=== PATIENT | male | born 1940 | race Two or more races ===

== ENCOUNTER 2019-12-31 13:29 | Inpatient (IN) | payer MEDICARE, OTHER ==
[~2019-12-31] VITALS: Ht 172.7 cm; Wt 93.4 kg
--- NOTE | 2019-12-31 13:40 | NUR ---
BIBELKE FROM [facility] C/O UNABLE TO SLEEP, HEARING VOICES, -SI. PATIENT A/OX4, BREATHING EVEN AND UNLABORED, NO SOB NOTED, AMBULATORY WITH STEADY GAIT. NO DISTRESS NOTED. CALM AND COOPERATIVE AT THIS TIME.
[2019-12-31] MEDS ORDERED: PHEN100C4 PO (13:47)
[2019-12-31] MEDS ORDERED: CALC-7 PO (13:47)
[2019-12-31] MEDS ORDERED: MULT-447 PO (13:47)
[2019-12-31] MEDS ORDERED: DIVA500T2 PO (13:47)
[2019-12-31] MEDS ORDERED: OLAN15TA3 PO (13:47)
[2019-12-31] MEDS ORDERED: PALI3TAB PO (13:47)
[2019-12-31] MEDS ORDERED: AMLO10TA4 PO (13:47)
[2019-12-31] MEDS ORDERED: TEMA30CA5 PO (13:47)
[2019-12-31] MEDS ORDERED: TAMS-12 PO (13:47)
[2019-12-31] MEDS ORDERED: VALB40CA PO (13:47)
[2019-12-31] MEDS ORDERED: ATOR40TA PO (13:47)
[2019-12-31 13:59] LABS: APPEARANCE,URINE Clear (CLEAR); BILIRUBIN,URINE Negative (NEGATIVE); BLOOD, URINE Moderate Ery/uL (NEGATIVE); COLOR,URINE Yellow (YELLOW); KETONES,URINE Negative (NEGATIVE); LEUKOCYTE ESTERASE ,URINE Large (NEGATIVE); NITRITE, URINE Positive (NEGATIVE); PH,URINE 6.5 (5.0-8.0); PROTEIN,URINE 30 mg/dl (NEGATIVE); UGLUCOSE Negative (NEGATIVE); UROBILINOGEN,URINE 0.2 EU/dL (0.2)
[2019-12-31 14:09] LABS: BACTERIA,URINE 1+ /HPF (None Seen); HYALINE CASTS, URINE Few /LPF (None Seen); SQUAMOUS EPITHELIAL CELL,UR Rare /HPF (None Seen); WBC,URINE 21-50 /HPF (0-3)
[2019-12-31 14:11] LABS: BASOPHILS % (AUTO) 0.6 % (0.0-2.0); EOSINOPHILS % (AUTO) 1.5 % (0.0-6.0); HEMATOCRIT 42 % (39-51); HEMOGLOBIN 14.3 g/dL (13.5-17.5); LYMPHOCYTES # (AUTO) 2.8 /CMM (0.8-4.8); LYMPHOCYTES % (AUTO) 33.9 % (20.0-44.0); MEAN CORPUSCULAR HGB CONC 34 g/dl (31.0-36.0); MEAN CORPUSCULAR VOLUME 94 fL (80-96); MONOCYTES # (AUTO) 0.7 /CMM (0.1-1.30); MONOCYTES % (AUTO) 8.4 % (2.0-12.0); NEUTROPHILS # (AUTO) 4.6 /CMM (1.8-8.9); NEUTROPHILS % (AUTO) 55.6 % (43.0-81.0); PLATELET COUNT (AUTO) 200 /CMM (150-450); RED BLOOD CELL COUNT(AUTO) 4.49 MIL/uL (4.5-6.0); WHITE BLOOD COUNT (AUTO) 8.3 K/uL (4.3-11.0)
[2019-12-31 14:22] LABS: CALCIUM, SERUM 8.8 mg/dL (8.5-10.1); CARBON DIOXIDE 28 mmol/L (21-32); CHLORIDE 106 mmol/L (98-107); CREATININE 1.1 mg/dL (0.6-1.3); GLUCOSE 127 mg/dL (74-106); POTASSIUM 3.8 mmol/L (3.5-5.1); SODIUM SERUM 142 mmol/L (136-145); UREA NITROGEN, BLOOD 21 mg/dL (7-18)
[2019-12-31 14:26] LABS: ALANINE AMINOTRANSFERASE 45 U/L (12-78); ALBUMIN 3.6 g/dL (3.4-5.0); ALCOHOL, BLOOD < 3 mg/dL (0-0); ALKALINE PHOSPHATASE 95 U/L (46-116); ASPARTATE AMINOTRANSFERASE 28 U/L (15-37); BILIRUBIN,DIRECT 0.1 mg/dL (0.0-0.2); BILIRUBIN,TOTAL 0.2 mg/dL (0.2-1.0); TOTAL PROTEIN, SERUM 7.4 g/dL (6.4-8.2)
[2019-12-31 14:27] LABS: ACETAMINOPHEN 0 ug/ml (10-30); SALICYLATE 2.5 mg/dL (2.8-20.0)
[2019-12-31] MEDS ORDERED: CEFTRIAXONE 1 G in IV D5W 50 ML IV STA (15:23)
--- NOTE | 2019-12-31 15:27 | NUR ---
CALLED CLINICIAN [facility] FOR EVAL. NO ETA GIVEN, BUT HE HIS ON HIS WAY.
[2019-12-31] MEDS ORDERED: CEPHALEXIN MONOHYDRATE 500 MG CAPSULE PO ONE (15:30)
[2019-12-31] MEDS ORDERED: ACETAMINOPHEN ES 500 MG TABLET ONE (16:12)
--- NOTE | 2019-12-31 16:20 | NUR ---
GOT GPS BED 216-A
[2019-12-31] MEDS ORDERED: ACETAMINOPHEN ES 500 MG TABLET PO ONE (16:30)
--- NOTE | 2019-12-31 16:33 | NUR ---
REPORT GIVEN TO NEHEMIAS POLK FOR ANETA.
--- NOTE | 2019-12-31 17:32 | NUR ---
PATIENT TRANSFERRED TO [facility], AMBULATORY WITH STEADY GAIT. NO DISTRESS NOTED.
[2019-12-31] MEDS ORDERED: MAG HYDROX/AL HYDROX/SIMETH 30 ML UDC PO PRN (18:00)
[2019-12-31] MEDS ORDERED: MAGNESIUM HYDROXIDE 30 ML UDC PO PRN (18:00)
--- NOTE | 2019-12-31 18:26 | NUR ---
GPS/RN-NOTES ADMITTED PATIENT 79 Y.O MALE PATIENT FROM [facility] ER.PATIENT ON 5150 FOR GD ADULT. PATIENT ALERT ORIENTED TO NAME ONLY AMBULATORY STEADY GAIT. CONTRABAND DONE. PATIENT SIGN ALL ADMISSION PAPERS. CALLED SISTER GERTRUDE WARD AT [phone] AND LEFT VOICE MESSAGE.DR. GASTON MADE AWARE WITH ORDERS. WILL ENDORSE TO INCOMING NURSE FOR ADMISSION PROCESS AND CONTINUITY OF CARE.
--- NOTE | 2019-12-31 19:15 | NUR ---
GPS ADMISSION NOTES: ADMITTED THIS 79-Y/O, MALE, FROM [facility]. ADMITTED ON 5150 HOLD FOR GD. PER HOLD PT. IS CONFUSED, DISORGANIZED, PARANOIA, AND DELUSIONAL. PT UNABLE TO PROVIDE FOR HIS FOOD AND GROUP HOME D/T MENTAL ILLNESS. UPON FACE TO FACE ASSESSMENT, PATIENT IS A&O X1-2, CONFUSED, DISORGANIZED, DISHEVELED, COOPERATIVE WITH CARE. REORIENTATION PROVIDED. AMBULATES INDEPENDENTLY. IN NO APPARENT DISTRESS NOTED. SKIN ASSESSMENT DONE. SKIN INTACT. PT'S RIGHTS HANDBOOK & PT. GUIDELINES BOOK GIVEN & DISCUSSED TO THE PATIENT. PT BELONGINGS WERE INVENTORIED & CHECKED FOR CONTRABAND. PT. IS UNDER THE PSYCHIATRIC CARE OF DR. GASTON, ORDERS OBTAINED & UNDER THE MEDICAL CARE OF DR. LAMBERT. MED RECON DONE. PATIENT EDUCATED TO THE USE OF CALL CISNEROS. BED ALARM ON. ENVIRONMENTAL SAFETY CHECK DONE. BED LOCKED & IN LOW POSITION. WILL CONTINUE TO MONITOR Q15 MINUTES FOR SAFETY & BEHAVIOR.
[2019-12-31 19:30] VITALS: BP 154/83
[2019-12-31] MEDS ORDERED: BLOOD SUGAR DIAGNOSTIC 1 EACH STRIP IN ONE (19:45)
[2019-12-31 20:00] VITALS: BP 154/93
[2019-12-31] MEDS: PHENYTOIN EXTENDED RELEASE 100 MG CAPSULE PO SCH (21:33)
[2019-12-31] MEDS: ZOLPIDEM TARTRATE 5 MG TABLET PO PRN (21:34)
--- NOTE | 2019-12-31 21:34 | NUR ---
GPS RN NOTE: INSOMNIA PT. C/O UNABLE TO SLEEP. ADMINISTERED AMBIEN 5 MG PO ORDERED. WILL CONTINUE TO MONITOR FOR PT'S SAFETY.
[2020-01-01] MEDS: LORAZEPAM 0.5 MG TABLET PO PRN (02:19)
--- NOTE | 2020-01-01 02:19 | NUR ---
GPS-RN NOTE: ANXIETY PATIENT IS ANXIOUS AND RESTLESS. ADMINISTERED ATIVAN 1MG PO ORDERED. WILL CONTINUE TO MONITOR FOR PATIENT'S SAFETY.
--- NOTE | 2020-01-01 06:15 | NUR ---
GPS RN NOTE: SCROTUM SCRATCH MANJEET CALLED TO MY ATTENTION BY READING INSTRUCTOR TO CHECK ON PATIENT. IMMEDIATELY WENT TO PATIENT'S ROOM AND ASSESSED. FOUND BLOOD STAINS ON THE FLOOR BY HIS BED AND SCROTUM AREA. WHEN ASKED PATIENT WHAT HAPPENED, PATIENT UNABLE TO GIVE DETAILS. PER ROOMMATE, PATIENT WAS MASTURBATING IN THE BATHROOM AND SUSTAINED A SCRATCH MANJEET WITH SCANT AMOUNT OF BLOOD. INITIAL TX RENDERED. PATIENT DENIES PAIN AND DISCOMFORT. EXPLAINED TO PATIENT THAT RN NEEDS TO TAKE A PICTURE OF THE AFFECTED AREA. PATIENT BECAME SEXUALLY INAPPROPRIATE AND STATED, "IS THIS PORNOGRAPHY? ARE YOU HORNY?" REDIRECTED PATIENT'S BEHAVIOR. NO ACTIVE BLEEDING AT THIS TIME. WOUND CONSULT ORDERED. DISCOURAGED PATIENT NOT TO SCRATCH SCROTUM. PATIENT IS CONFUSED AND UNABLE TO VERBALIZE UNDERSTANDING. WILL CONT. TO MONITOR FOR S/S OF INFECTION. WILL ENDORSE TO DAY SHIFT FOR CONTINUITY OF CARE.
[2020-01-01 08:00] VITALS: BP 145/85
[2020-01-01] MEDS: CALCIUM CARB 250MG /VITAMIN D 1 UDTAB PO SCH (08:28)
[2020-01-01] MEDS: TAMSULOSIN 0.4 MG CAP.SR.24H PO SCH (08:28)
[2020-01-01] MEDS: ATORVASTATIN 40 MG TABLET PO SCH (08:28)
[2020-01-01] MEDS: DIVALPROEX SODIUM 500 MG TABLET.DR PO SCH ×2 (08:28→21:14)
[2020-01-01] MEDS: AMLODIPINE BESYLATE 10 MG TABLET PO SCH (08:29)
[2020-01-01 09:07] LABS: ALBUMIN 3.3 g/dL (3.4-5.0); BILIRUBIN,TOTAL 0.3 mg/dL (0.2-1.0); CALCIUM, SERUM 8.7 mg/dL (8.5-10.1); CREATININE 1.1 mg/dL (0.6-1.3); POTASSIUM 4.4 mmol/L (3.5-5.1); TOTAL PROTEIN, SERUM 7.2 g/dL (6.4-8.2)
[2020-01-01] MEDS: LEVETIRACETAM (250 MG) 250 MG TABLET PO SCH ×2 (09:18→21:14)
--- NOTE | 2020-01-01 09:38 | NUR ---
WOUND CARE CONSULT: PT PRESENTS WITH LEFT GROIN AREA RASH, PRESENT ON ADMISSION. PT IS AMBULATORY AND CONTINENT. RECOMMENDATIONS MADE FOR SKIN CARE AND SKIN PROTECTION. DISCUSSED WITH NURSING STAFF. WILL SEE PRN. GUERRIER IN AGREEMENT WITH PLAN OF CARE. Addendum: 01/01/20 at 0939 by PERRY CHANG WNDNU Amended: Links added.
--- NOTE | 2020-01-01 09:43 | NUR ---
RN NOTES PT SEEN AND EVALUATED BY DR LAMBERT. INFORMED HIM REGARDING PT HIGH URINE WBC 20-50.
--- NOTE | 2020-01-01 09:58 | NUR ---
Dr. Cervantes as the medical reception of the unit gave an order for denial of right to do room search to look for the missing shower head with the hose. Staffs made a thorough search and the thing that we are looking is not in the room.
--- NOTE | 2020-01-01 10:41 | NUR ---
Family Contact: SW called the pts sister, Alison ([phone]), and left a voicemail stating that the SW would like to talk to her and discuss the pts initial treatment and discharge plan.
[2020-01-01 10:54] LABS: FREE PSA 0.92 ng/mL (0.00-45); PROSTATE SPECIFIC ANTIGEN SCR 6.04 ng/mL (0.00-4.00)
[2020-01-01] MEDS: CLOTRIMAZOLE 1% 15 GM TUBE TP SCH ×2 (11:15→16:09)
--- NOTE | 2020-01-01 14:29 | NUR ---
RN NOTES DOVETAILER CAME TO DO U/S KIDNEYS AND PT REFUSED DESPITE EDUCATING ON THE IMPORTANCE OF SAID PROCEDURE.
--- NOTE | 2020-01-01 15:20 | NUR ---
Facility Contact: ROBBY called [facility] ([phone]) and spoke to Sandy who stated that the pt can return to the facility upon discharge.
--- NOTE | 2020-01-01 15:54 | NUR ---
Initial Discharge Plan: Pt currently resides in a intermediate home called [facility] located at [address] [place] [address]; ([phone]). Per pt, he would like to return. ROBBY will work with the pt and the MD regarding appropriate discharge planning. SW will form a safe and proper discharge.
[2020-01-01 16:01] VITALS: BP 130/76
[2020-01-01] MEDS: risperiDONE 1 MG TABLET PO SCH (16:11)
[2020-01-01 20:30] VITALS: BP 130/77
[2020-01-01] MEDS: PHENYTOIN EXTENDED RELEASE 100 MG CAPSULE PO SCH (21:14)
[2020-01-01] MEDS: OLANZAPINE 10 MG TABLET PO SCH (21:15)
[2020-01-02 08:00] VITALS: BP 123/55
[2020-01-02] MEDS: AMLODIPINE BESYLATE 10 MG TABLET PO SCH (09:55)
[2020-01-02] MEDS: TAMSULOSIN 0.4 MG CAP.SR.24H PO SCH (09:55)
[2020-01-02] MEDS: LEVETIRACETAM (250 MG) 250 MG TABLET PO SCH ×2 (09:55→20:11)
[2020-01-02] MEDS: ATORVASTATIN 40 MG TABLET PO SCH (09:55)
[2020-01-02] MEDS: risperiDONE 1 MG TABLET PO SCH ×2 (09:56→17:25)
[2020-01-02] MEDS: CALCIUM CARB 250MG /VITAMIN D 1 UDTAB PO SCH (09:56)
[2020-01-02] MEDS: DIVALPROEX SODIUM 500 MG TABLET.DR PO SCH ×2 (09:56→20:10)
[2020-01-02] MEDS: CLOTRIMAZOLE 1% 15 GM TUBE TP SCH ×2 (10:11→17:21)
[2020-01-02 16:00] VITALS: BP 127/80
--- NOTE | 2020-01-02 18:07 | NUR ---
RN-CO: RN toll collector supervisor made aware that patient has mild MRSA of the nares and needed to be isolated. No available room as this time in GPS, since 217 (isolation room) has a patient that needs be isolated too.
--- NOTE | 2020-01-02 18:32 | NUR ---
CALL FROM [facility] THAT PT. HAS MRSA NARES.PATIENT SERVICE REP INFORMED.ORDER WRITTEN FOR BACTROBAN
[2020-01-02] MEDS: MUPIROCIN OINT 2% 22 GM TUBE SCH ×2 (19:46→20:11)
[2020-01-02 20:00] VITALS: BP 153/93
--- NOTE | 2020-01-02 20:00 | NUR ---
GPS/RN OPENING NOTES RECEIVED PATIENT AWAKE, AND ABLE TO AMBULATE IN HALLWAY WITH WALKER, REQUIRE ASSISTANCE AND EDUCATION FOR CONTACT ISOLATION FOR MRSA, ABLE TO COOPERATE AND TOLERATE MEDICATION VIA NARES. RECEIVED ENDORSEMENT FROM AM RN FOR ANETA. CHARGE NURSE AWARE FOR ISOLATION PROTOCOL, AWAITING FOR ROOM. REQUIRE MONITORING FOR BEHAVIOR.
[2020-01-02 20:56] VITALS: BP 132/71
[2020-01-02] MEDS: PHENYTOIN EXTENDED RELEASE 100 MG CAPSULE PO SCH (21:39)
[2020-01-02] MEDS: OLANZAPINE 10 MG TABLET PO SCH (21:39)
--- NOTE | 2020-01-02 22:03 | NUR ---
GPS/RN NOTES PATIENT MONITORED IN HALLWAY PATIENT IS AMBULATING WITH WALKER, DISCUSSED SAFETY MEASURED WITH RADIO DIVISION LIEUTENANT AND TO MONITOR.
--- NOTE | 2020-01-03 02:31 | NUR ---
GPS/RN NOTES TO FOLLOW UP URINE CULTURE FINAL RESULT WITH DR LAMBERT GRAB SETTER MD AT 5AM FOR ORDER.
[2020-01-03] MEDS ORDERED: ACETAMINOPHEN 325 MG TABLET ONE (02:58)
[2020-01-03] MEDS: ACETAMINOPHEN 325 MG TABLET PO PRN (03:00)
--- NOTE | 2020-01-03 03:06 | NUR ---
GPS/RN NOTES PATIENT REPORTED SOME MILD PELON IN LOWER BACK, TYLENOL 650 MG PO NEEDED GIVEN. MONITOR FOR RELIEF.
[2020-01-03] MEDS: LORAZEPAM 0.5 MG TABLET PO PRN (03:17)
--- NOTE | 2020-01-03 03:21 | NUR ---
GPS/RN NOTES PATIENT UNABLE TO CALM DOWN, REQUESTED FOR SOME ATIVAN PRN ORDER OF 1MG TABLET. TO MONITOR EFFECTIVENESS.
--- NOTE | 2020-01-03 05:13 | NUR ---
GPS/RN NOTES MD LAMBERT WAS CONTACTED REGARDING FINAL RESULT OF URINE CULTURE AND MADE AWARE WITH NO NEW ORDER PATIENT IS ASYMPTOMATIC.
[2020-01-03 08:00] VITALS: BP 124/60
[2020-01-03] MEDS: TAMSULOSIN 0.4 MG CAP.SR.24H PO SCH (09:27)
[2020-01-03] MEDS: LEVETIRACETAM (250 MG) 250 MG TABLET PO SCH ×2 (09:27→21:46)
[2020-01-03] MEDS: AMLODIPINE BESYLATE 10 MG TABLET PO SCH (09:27)
[2020-01-03] MEDS: ATORVASTATIN 40 MG TABLET PO SCH (09:27)
[2020-01-03] MEDS: DIVALPROEX SODIUM 500 MG TABLET.DR PO SCH ×2 (09:27→21:46)
[2020-01-03] MEDS: risperiDONE 1 MG TABLET PO SCH ×2 (09:27→17:44)
[2020-01-03] MEDS: CALCIUM CARB 250MG /VITAMIN D 1 UDTAB PO SCH (09:27)
[2020-01-03] MEDS: MUPIROCIN OINT 2% 22 GM TUBE SCH (09:28)
[2020-01-03] MEDS: CLOTRIMAZOLE 1% 15 GM TUBE TP SCH ×2 (09:28→17:45)
--- NOTE | 2020-01-03 15:31 | NUR ---
RN NOTES SEEN PATIENT BY HOSPITALIST Dr LAMBERT INCREASE FLUID INTAKE, NO ORDER FOR UA-WBC 21-50, DS-[id number], D/C ANTIBIOTIC PER MD BACTROBAN. PER MD BACTERIA COLONIZED PATIENT DOES NOT NEED TREATMENT.
--- NOTE | 2020-01-03 20:35 | NUR ---
MS RN NOTES RECEIVED PATIENT ASLEEP IN BED WITH NO DISTRESS NOTED. SITTER AT BEDSIDE. NO C/O PAIN OR DISCOMFORT. ENCOURAGED USE OF CALL LIGHT FOR ASSISTANCE AND VERBALIZED GOOD UNDERSTANDING. ROOM FREE OF CLUTTER AND BELONGINGS KEPT NEAR BEDSIDE. BED IN LOW LOCK SETTING WITH BED ALARM ON AND FUNCTIONING PROPERLY. WILL CONTINUE TO MONITOR
[2020-01-03] MEDS: OLANZAPINE 10 MG TABLET PO SCH (21:46)
--- NOTE | 2020-01-04 06:26 | NUR ---
MS RN NOTES PATIENT AWAKE IN BED WITH NO DISTRESS NOTED. CALL LIGHT WITHIN REACH. ALL DUE MEDS GIVEN ORDERED WITH NO ASE. NO C/O PAIN OR DISCOMFORT. NO BEHAVIORAL EPISODES NOTED DURING SHIFT. BED IN LOW LOCK SETTING. ALL BELONGINGS KEPT NEAR BEDSIDE. WILL ENDORSE TO ONCOMING SHIFT. Addendum: 01/04/20 at 0628 by NANCY GRAY RN ERROR WRONG PATIENT
--- NOTE | 2020-01-04 06:29 | NUR ---
MS RN NOTES RECEIVED PATIENT ASLEEP IN BED WITH NO DISTRESS NOTED. SITTER AT BEDSIDE. NO C/O PAIN OR DISCOMFORT. ALL DUE MEDS GIVEN ORDERED WITH NO ASE. ROOM FREE OF CLUTTER AND BELONGINGS KEPT NEAR BEDSIDE. BED IN LOW LOCK SETTING WITH BED ALARM ON AND FUNCTIONING PROPERLY. WILL ENDORSE TO ONCOMING SHIFT.
[2020-01-04] MEDS: LEVETIRACETAM (250 MG) 250 MG TABLET PO SCH ×2 (10:52→21:23)
[2020-01-04] MEDS: TAMSULOSIN 0.4 MG CAP.SR.24H PO SCH (10:53)
[2020-01-04] MEDS: CALCIUM CARB 250MG /VITAMIN D 1 UDTAB PO SCH (10:53)
[2020-01-04] MEDS: AMLODIPINE BESYLATE 10 MG TABLET PO SCH (10:54)
[2020-01-04] MEDS: DIVALPROEX SODIUM 500 MG TABLET.DR PO SCH ×2 (10:54→21:22)
[2020-01-04] MEDS: risperiDONE 1 MG TABLET PO SCH ×2 (10:54→18:01)
[2020-01-04] MEDS: ATORVASTATIN 40 MG TABLET PO SCH (10:54)
[2020-01-04] MEDS: CLOTRIMAZOLE 1% 15 GM TUBE TP SCH ×2 (10:55→18:02)
--- NOTE | 2020-01-04 18:50 | NUR ---
RN Notes Patient transferred back tor GPS. Patient stable, no acute respiratory distress, v/s stable, ambulatory using walker. Administered scheduled medication, tolerated dinner well. report given GPS RN. RN verbalized understanding, and will follow up.
[2020-01-04 21:03] VITALS: BP 134/78
[2020-01-04] MEDS: OLANZAPINE 10 MG TABLET PO SCH (21:22)
[2020-01-05] MEDS: ZOLPIDEM TARTRATE 5 MG TABLET PO PRN (00:09)
--- NOTE | 2020-01-05 00:10 | NUR ---
GPS RN NOTES: INSOMNIA UPON DOING ROUNDS PT IS SITTING IN HIS BED AWAKE. PT STATED, " I CANT SLEEP. CAN I HAVE MEDICATION PLEASE?" OFFERED AMBIEN 5MG PO PRN ORDERED. PT AGREED AND TOLERATED MEDICATION WELL. CONTINUE TO MONITOR
[2020-01-05 08:00] VITALS: BP 116/75
[2020-01-05] MEDS: DIVALPROEX SODIUM 500 MG TABLET.DR PO SCH ×2 (08:35→20:19)
[2020-01-05] MEDS: AMLODIPINE BESYLATE 10 MG TABLET PO SCH (08:35)
[2020-01-05] MEDS: CALCIUM CARB 250MG /VITAMIN D 1 UDTAB PO SCH (08:35)
[2020-01-05] MEDS: ATORVASTATIN 40 MG TABLET PO SCH (08:36)
[2020-01-05] MEDS: LEVETIRACETAM (250 MG) 250 MG TABLET PO SCH ×2 (08:36→20:19)
[2020-01-05] MEDS: risperiDONE 1 MG TABLET PO SCH ×2 (08:36→16:36)
[2020-01-05] MEDS: TAMSULOSIN 0.4 MG CAP.SR.24H PO SCH (08:36)
[2020-01-05] MEDS: CLOTRIMAZOLE 1% 15 GM TUBE TP SCH ×2 (09:35→17:25)
[2020-01-05 16:00] VITALS: BP 119/75
[2020-01-05 21:30] VITALS: BP 111/93
[2020-01-05] MEDS: OLANZAPINE 10 MG TABLET PO SCH (21:31)
[2020-01-06 08:00] VITALS: BP 126/80
[2020-01-06] MEDS: CALCIUM CARB 250MG /VITAMIN D 1 UDTAB PO SCH (08:30)
[2020-01-06] MEDS: AMLODIPINE BESYLATE 10 MG TABLET PO SCH (08:30)
[2020-01-06] MEDS: ATORVASTATIN 40 MG TABLET PO SCH (08:30)
[2020-01-06] MEDS: risperiDONE 1 MG TABLET PO SCH ×2 (08:30→16:41)
[2020-01-06] MEDS: DIVALPROEX SODIUM 500 MG TABLET.DR PO SCH ×2 (08:31→21:07)
[2020-01-06] MEDS: TAMSULOSIN 0.4 MG CAP.SR.24H PO SCH (08:31)
[2020-01-06] MEDS: LEVETIRACETAM (250 MG) 250 MG TABLET PO SCH ×2 (08:31→21:07)
[2020-01-06] MEDS: CLOTRIMAZOLE 1% 15 GM TUBE TP SCH ×2 (11:11→16:50)
--- NOTE | 2020-01-06 13:39 | NUR ---
Facility Contact: ROBBY called [facility] ([phone]) and spoke to Sandy and informed her that the pt will be returning to the facility the following day. She stated that she needs the prescriptions to be faxed to the pharmacy to: [phone].
--- NOTE | 2020-01-06 13:42 | NUR ---
Family Contact: SW called the pts sister, Alison ([phone]), and was unable to leave a voicemail stating that the pt will be discharged back to his facility tomorrow.
--- NOTE | 2020-01-06 15:28 | NUR ---
Group Note: SW encouraged pt to attend group therapy on 01/06/20 at 2pm discussing discharge planning but the pt refused to attend and stated that he does not know what the SW is talking about. Pt presented as confused and disorganized. SW stated that he was going to be discharged back to the facility he came from but the pt did not know where that was. Pt was deemed inappropriate for group therapy at this time.
[2020-01-06 16:00] VITALS: BP 136/57
[2020-01-06 20:11] VITALS: BP 110/59
[2020-01-06] MEDS: OLANZAPINE 10 MG TABLET PO SCH (21:07)
[2020-01-07 08:00] VITALS: BP 129/51
[2020-01-07 08:19] VITALS: BP 129/51
[2020-01-07] MEDS: AMLODIPINE BESYLATE 10 MG TABLET PO SCH (08:19)
[2020-01-07] MEDS: risperiDONE 1 MG TABLET PO SCH (08:19)
[2020-01-07] MEDS: CLOTRIMAZOLE 1% 15 GM TUBE TP SCH (08:19)
[2020-01-07] MEDS: CALCIUM CARB 250MG /VITAMIN D 1 UDTAB PO SCH (08:19)
[2020-01-07] MEDS: TAMSULOSIN 0.4 MG CAP.SR.24H PO SCH (08:19)
[2020-01-07] MEDS: LEVETIRACETAM (250 MG) 250 MG TABLET PO SCH (08:19)
[2020-01-07] MEDS: DIVALPROEX SODIUM 500 MG TABLET.DR PO SCH (08:19)
[2020-01-07] MEDS: ATORVASTATIN 40 MG TABLET PO SCH (08:20)
[2020-01-07] MEDS: ACETAMINOPHEN 325 MG TABLET PO PRN (09:05)
--- NOTE | 2020-01-07 14:13 | NUR ---
Discharge Note: Pt was discharged to [facility] located at [address] [place] [id number]; . Pt was discharged at 2:30PM via [facility]. SW attempted to inform the pts sister. Upon discharge, the pt appears to be in a euthymic mood and presents with a calm affect. Pt appears to be confused and disorganized. Pt appears to be oriented x1 (self). Pt is ambulatory with a steady gait. Pt denied both suicidal and homicidal ideation as well as auditory and visual hallucinations. Pt will continue to be under the care of psychiatrist, Dr. Herminio Watts, located at [address] [place] [address] [address] [address]; and applied mathematician, Dr. Hernadez, located at [address] [place] [address]; .
--- NOTE | 2020-01-07 14:47 | NUR ---
GPS/RN - Discharge Note Estuardo Johnson is a 79 year old male, discharged to [facility] in stable condition. Patient compliant with medications, cooperative with treatment plans. Patient is alert to self, needs frequent reorientation, ambulatory with steady gait, denies pain, not in any form of distress, afebrile. Patient denies suicidal ideation or homicidal ideation at this time. Patient refused wound pictures to be taken. Behavior improved, psychiatric treatment plans met, medical treatment plans deferred for continual monitoring. Medications reconciled with Dr. Cervantes and Dr. Bonner. Prescriptions faxed to [facility] at [phone]. Returned all personal belongings to patient and he deny any missing items. Patient left the unit at 14:15 via [facility]. cinder crew worker notified sister of discharge.
== END 2020-01-07 14:15 | DRG 885 ==
LOC: ER 13:44 → GPS 17:10 → GPSOV2 01-03 08:14 → GPS 01-04 19:07
PROVIDERS: ADMIT Psychiatry & Neurology Psychiatry; ATTEND Internal Medicine
DX: F20.0 Paranoid schizophrenia (principal); I10 Essential (primary) hypertension; E78.5 Hyperlipidemia, unspecified; E66.9 Obesity, unspecified; N40.0 Benign prostatic hyperplasia without lower urinary tract symptoms; Z68.31 Body mass index [BMI] 31.0-31.9, adult; R31.29 Other microscopic hematuria; G40.409 Other generalized epilepsy and epileptic syndromes, not intractable, without status epilepticus; F29 Unspecified psychosis not due to a substance or known physiological condition; Z22.322 Carrier or suspected carrier of Methicillin resistant Staphylococcus aureus; R21 Rash and other nonspecific skin eruption; F03.90 Unspecified dementia, unspecified severity, without behavioral disturbance, psychotic disturbance, mood disturbance, and anxiety; G47.00 Insomnia, unspecified
CPT/HCPCS: 36415; 80048-TC; 80053-TC; 80061-TC; 80076-TC; 80164-TC; 80305; 81000-TC; 82962-TC; 84153-TC; 84154-TC; 85025-TC; 87081-TC; 87086-TC; 87186-TC; G0480; J0696; J7060

== ENCOUNTER 2025-09-12 15:54 | Inpatient (IN) | payer MEDICARE, OTHER ==
[~2025-09-12] VITALS: Ht 172.7 cm; Wt 76.2 kg
[~2025-09-12 15:54] MED LIST: AMLO10TA4 PO; ATOR40TA PO; CALC-7 PO; DIVA500T2 PO; MULT-447 PO; PHEN100C4 PO; TAMS-12 PO
[2025-09-12] MEDS ORDERED: POLY17PO4 PO (16:25)
[2025-09-12] MEDS ORDERED: THIA100T68 PO (16:25)
[2025-09-12] MEDS ORDERED: MULT-225 PO (16:25)
[2025-09-12] MEDS ORDERED: BUSP10TA3 PO (16:25)
[2025-09-12] MEDS ORDERED: HEPA50007 SQ (16:25)
[2025-09-12] MEDS ORDERED: RISP0.5T65 PO (16:25)
[2025-09-12] MEDS ORDERED: MELA1TAB27 PO (16:25)
[2025-09-12] MEDS ORDERED: SENN-301 PO (16:25)
[2025-09-12] MEDS ORDERED: CRAN400C PO (16:25)
[2025-09-12] MEDS ORDERED: BREX1TAB PO (16:25)
[2025-09-12] MEDS ORDERED: DIVA125C2 PO (16:25)
[2025-09-12] MEDS ORDERED: ASCO500T10 PO (16:25)
[2025-09-12] MEDS ORDERED: FERR325T30 PO (16:25)
[2025-09-12 17:23] LABS: PLATELET COUNT (AUTO) 207 K/uL (150-450); RED BLOOD CELL COUNT(AUTO) 4.39 MIL/uL (4.5-6.0); RED CELL DISTRIBUTION WIDTH 15.6 % (11.5-15.0); WHITE BLOOD COUNT (AUTO) 11.0 K/uL (4.3-11.0)
[2025-09-12 17:30] LABS: CALCIUM, SERUM 8.6 mg/dL (8.5-10.1); CREATININE 1.2 mg/dL (0.6-1.3); SODIUM SERUM 142 mmol/L (136-145); UREA NITROGEN, BLOOD 30 mg/dL (7-18)
[2025-09-12 17:36] LABS: ALCOHOL, BLOOD < 3 mg/dL (0-10); ASPARTATE AMINOTRANSFERASE 13 U/L (15-37); TOTAL PROTEIN, SERUM 7.3 g/dL (6.4-8.2)
[2025-09-12 18:02] LABS: APPEARANCE,URINE SLIGHTLY CLOUDY (CLEAR); BLOOD, URINE 1+ Ery/uL (NEGATIVE); LEUKOCYTE ESTERASE ,URINE 2+ (NEGATIVE); NITRITE, URINE POSITIVE (NEGATIVE); UGLUCOSE NEGATIVE (NEGATIVE)
[2025-09-12 18:11] LABS: AMPHETAMINE, URINE NEGATIVE (NEGATIVE); BARBITURATE, URINE NEGATIVE (NEGATIVE); BENZODIAZEPINE, URINE NEGATIVE (NEGATIVE); CANNABINOID, URINE NEGATIVE (NEGATIVE); COCCAINE, URINE NEGATIVE (NEGATIVE); OPIATE, URINE NEGATIVE (NEGATIVE)
[2025-09-12 18:24] LABS: ADD URINE CULTURE YES
[2025-09-12 18:25] LABS: SQUAMOUS EPITHELIAL CELL,UR Few /HPF (None Seen)
[2025-09-12 20:00] VITALS: BP 158/96; TEMP 98.2; O2SAT 98
[2025-09-12] MEDS ORDERED: ZOLPIDEM TARTRATE 5 MG TABLET PO PRN (20:00)
[2025-09-12] MEDS ORDERED: MAGNESIUM HYDROXIDE 30 ML UDC PO PRN (20:00)
[2025-09-12] MEDS ORDERED: MAG HYDROX/AL HYDROX/SIMETH 30 ML UDC PO PRN (20:00)
[2025-09-12] MEDS ORDERED: ACETAMINOPHEN 325 MG TABLET PO PRN (20:00)
[2025-09-12] MEDS ORDERED: LORAZEPAM 0.5 MG TABLET PO PRN (20:00)
[2025-09-12] MEDS: CEPHALEXIN MONOHYDRATE 250 MG CAPSULE PO ONE (20:22)
[2025-09-12] MEDS: ZOLPIDEM TARTRATE 5 MG TABLET PO PRN (20:22)
[2025-09-12] MEDS: BLOOD SUGAR DIAGNOSTIC 1 EACH STRIP IN ONE (20:23)
[2025-09-12 20:50] VITALS: BP 158/96; TEMP 98.2; O2SAT 98
[2025-09-12] MEDS: HEPARIN SODIUM, PORCINE 5000 UNITS/1 ML VIAL SQ SCH (21:00)
[2025-09-12] MEDS: SENNOSIDES/DOCUSATE SODIUM 1 UDTAB TABLET PO SCH (21:51)
[2025-09-12] MEDS: LORAZEPAM 1 MG TABLET PO PRN (22:19)
[2025-09-12 23:15] VITALS: BP 138/62
[2025-09-13] MEDS: CEPHALEXIN MONOHYDRATE 250 MG CAPSULE PO SCH (00:27)
[2025-09-13] MEDS ORDERED: MAGNESIUM HYDROXIDE 30 ML UDC PO PRN (05:30)
[2025-09-13] MEDS ORDERED: MAG HYDROX/AL HYDROX/SIMETH 30 ML UDC PO PRN (05:30)
[2025-09-13] MEDS: BLOOD SUGAR DIAGNOSTIC 1 EACH STRIP IN ONE (05:36)
[2025-09-13 08:00] VITALS: BP 121/64; TEMP 98.6; O2SAT 98
[2025-09-13] MEDS: POLYETHYLENE GLYCOL 3350 17 GM POWD.PACK PO SCH (08:40)
[2025-09-13] MEDS: TAMSULOSIN 0.4 MG CAP.SR.24H PO SCH (08:40)
[2025-09-13] MEDS: FERROUS SULFATE (325 MG) 325 MG/TAB TABLET PO SCH (08:40)
[2025-09-13] MEDS: MULTIVITAMINS,THERAGRAN 1 UDTAB TABLET PO SCH (08:40)
[2025-09-13] MEDS: ASCORBIC ACID 500 MG TABLET PO SCH (08:40)
[2025-09-13] MEDS: THIAMINE HCL 100 MG TABLET PO SCH (08:40)
[2025-09-13] MEDS ORDERED: Medication Not On Formulary EA (Cranberry 400 MG) PO SCH (09:00)
[2025-09-13] MEDS: LORAZEPAM INJ 2 MG/ML VIAL IM STA (10:03)
[2025-09-13] MEDS: HALOPERIDOL LACTATE INJ 5 MG/ML VIAL IM STA (10:03)
[2025-09-13 16:00] VITALS: BP 112/40; TEMP 98.1; O2SAT 99
[2025-09-13] MEDS: SENNOSIDES/DOCUSATE SODIUM 1 TAB TABLET PO SCH (21:37)
[2025-09-13] MEDS: DIVALPROEX SODIUM 125 MG CAP.SPRINK PO SCH (21:37)
[2025-09-14 08:00] VITALS: BP 158/124; TEMP 97.5; O2SAT 97
[2025-09-14] MEDS: QUETIAPINE FUMARATE 25 MG TABLET PO SCH (08:12)
[2025-09-14] MEDS: LORAZEPAM 0.5 MG TABLET PO PRN (15:15)
[2025-09-14 20:50] VITALS: BP 149/97; TEMP 97.6; O2SAT 97
[2025-09-14] MEDS: TEMAZEPAM 7.5 MG CAPSULE PO PRN (22:13)
[2025-09-15] MEDS: LORAZEPAM INJ 2 MG/ML VIAL IM STA ×2 (00:15→13:46)
[2025-09-15] MEDS: HALOPERIDOL LACTATE INJ 5 MG/ML VIAL IM STA ×2 (00:16→13:46)
[2025-09-15] MEDS: CEPHALEXIN MONOHYDRATE 250 MG CAPSULE PO ONE (05:25)
[2025-09-15 08:00] VITALS: BP 129/77; TEMP 97.8; O2SAT 99
[2025-09-15 16:00] VITALS: BP 123/62; TEMP 97.3; O2SAT 98
[2025-09-16 08:00] VITALS: BP 120/99; TEMP 97.9; O2SAT 99
[2025-09-16] MEDS: QUETIAPINE FUMARATE 25 MG TABLET PO SCH (08:15)
[2025-09-16 16:00] VITALS: BP 139/79; TEMP 98.1; O2SAT 100
[2025-09-16 20:59] VITALS: BP 117/61; TEMP 98.1; O2SAT 99
[2025-09-17] MEDS: CEPHALEXIN MONOHYDRATE 500 MG CAPSULE PO ONE (06:44)
[2025-09-17 08:00] VITALS: BP 143/82; TEMP 97.7; O2SAT 98
[2025-09-17 20:34] VITALS: BP 129/90; TEMP 97.8; O2SAT 97
[2025-09-18 16:08] VITALS: BP 119/83; TEMP 97.9; O2SAT 99
[2025-09-18] MEDS ORDERED: QUETIAPINE FUMARATE 25 MG TABLET PO SCH (17:00)
[2025-09-18 20:47] VITALS: BP 138/87; TEMP 98.4; O2SAT 98
[2025-09-18 20:56] VITALS: BP 138/87; TEMP 98.4; O2SAT 98
[2025-09-18] MEDS: LORAZEPAM INJ 2 MG/ML VIAL IM STA (21:10)
[2025-09-18] MEDS: HALOPERIDOL LACTATE INJ 5 MG/ML VIAL IM STA (21:11)
[2025-09-19 08:00] VITALS: BP 136/80; TEMP 97.9; O2SAT 99
[2025-09-19] MEDS: QUETIAPINE FUMARATE 25 MG TABLET PO SCH (08:38)
[2025-09-19 16:00] VITALS: BP 104/86; TEMP 97.7; O2SAT 98
[2025-09-19 21:06] VITALS: BP 125/96; TEMP 98; O2SAT 99
[2025-09-20 07:52] VITALS: BP 120/66; TEMP 97.5; O2SAT 95
[2025-09-20] MEDS: LORAZEPAM INJ 2 MG/ML VIAL IM STA (08:41)
[2025-09-20] MEDS: HALOPERIDOL LACTATE INJ 5 MG/ML VIAL IM STA (08:41)
[2025-09-20 15:43] VITALS: TEMP 98.1
[2025-09-20 20:11] VITALS: BP 144/72; TEMP 98.1; O2SAT 98
[2025-09-20] MEDS: DIVALPROEX SODIUM 125 MG CAP.SPRINK PO SCH (20:58)
[2025-09-20] MEDS: ACETAMINOPHEN 325 MG TABLET PO PRN (21:47)
[2025-09-21] MEDS: HALOPERIDOL LACTATE INJ 5 MG/ML VIAL IM STA (02:32)
[2025-09-21] MEDS: LORAZEPAM INJ 2 MG/ML VIAL IM STA (02:32)
[2025-09-21] MEDS: QUETIAPINE FUMARATE 25 MG TABLET PO SCH ×2 (08:50→21:42)
[2025-09-21 16:00] VITALS: BP 110/87; TEMP 97.8; O2SAT 98
[2025-09-22 08:00] VITALS: BP 124/88; TEMP 98.6; O2SAT 99
[2025-09-22 16:00] VITALS: BP 121/78; TEMP 98.6; O2SAT 100
[2025-09-22] MEDS: DIVALPROEX SODIUM 125 MG CAP.SPRINK PO SCH (22:02)
[2025-09-23 07:56] VITALS: BP 145/85; TEMP 98.1; O2SAT 100
[2025-09-23 16:00] VITALS: BP 138/78; TEMP 98.8; O2SAT 99
[2025-09-23 20:00] VITALS: BP 157/82; TEMP 97.9; O2SAT 98
[2025-09-24 08:00] VITALS: BP 149/83; TEMP 97.7; O2SAT 97
[2025-09-24] MEDS ORDERED: LORAZEPAM INJ 2 MG/ML VIAL IM STA (08:30)
[2025-09-24] MEDS ORDERED: HALOPERIDOL LACTATE INJ 5 MG/ML VIAL IM ONE (08:30)
[2025-09-24 10:56] VITALS: BP 120/79; TEMP 98.5; O2SAT 99
== END 2025-09-24 17:47 | DRG 885 ==
LOC: ER 16:03 → GPS 18:13
PROVIDERS: ADMIT Psychiatry & Neurology Psychiatry; ATTEND Nurse Practitioner Family
DX: F29 Unspecified psychosis not due to a substance or known physiological condition (principal); F02.82 Dementia in other diseases classified elsewhere, unspecified severity, with psychotic disturbance; G20.A1 Parkinson's disease without dyskinesia, without mention of fluctuations; N39.0 Urinary tract infection, site not specified; B96.89 Other specified bacterial agents as the cause of diseases classified elsewhere; I10 Essential (primary) hypertension; D64.9 Anemia, unspecified; F39 Unspecified mood [affective] disorder; F02.83 Dementia in other diseases classified elsewhere, unspecified severity, with mood disturbance; N40.0 Benign prostatic hyperplasia without lower urinary tract symptoms; E78.5 Hyperlipidemia, unspecified; Z73.6 Limitation of activities due to disability
CPT/HCPCS: 36415; 80048-TC; 80076-TC; 80164-TC; 81001; 85025-TC; 87081-TC; 87086-TC; 97116-TC; 97530-TC; G0480; J1200; J1630; J1644; J2060